=== PATIENT | female | born 1970 | race Caucasian/White ===

== ENCOUNTER 2017-10-17 15:28 | Emergency (ER) | payer MEDICAID ==
[~2017-10-17] VITALS: Ht 157.5 cm; Wt 90.0 kg
[2017-10-17] MEDS ORDERED: KETOROLAC 30MG/ML VIAL IM ONE (18:45)
[2017-10-17 18:57] VITALS: BP 141/81
== END 2017-10-17 18:59 | disposition home or self-care (01) ==
LOC: ER 15:31
DX: N64.4 Mastodynia (principal)
CPT/HCPCS: 96372; 99283; J1885